=== PATIENT | female | born 1940 | race Caucasian/White ===

== ENCOUNTER 2018-07-24 09:58 | Outpatient (REF) | payer MEDICARE, SELFPAY ==
[2018-07-24 21:44] LABS: Anion Gap 7.3 mmol/L (3-11); BUN 16 mg/dL (7-18); CO2 31.7 mmol/L (21.0-32.0); CREATININE 0.82 mg/dL (0.55-1.02); Calcium 9.1 mg/dL (8.5-10.1); Chloride 100 mmol/L (98-107); Glucose 76 mg/dL (70-100); Potassium 4.3 mmol/L (3.5-5.1); Sodium 139 mmol/L (136-145)
== END 2018-07-24 10:18 ==
LOC: NCHCN 09:58
PROVIDERS: PCP Family Medicine; Visit Provider Family Medicine
DX: I10 Essential (primary) hypertension (principal)
CPT/HCPCS: 80048

== ENCOUNTER 2018-11-07 16:11 | Outpatient (REF) | payer MEDICARE, SELFPAY | END 2018-11-07 16:31 | LOC: NCHCN 16:11 | PROVIDERS: PCP Family Medicine; Visit Provider Family Medicine | DX: R82.90 Unspecified abnormal findings in urine (principal); R07.81 Pleurodynia; M54.89 Other dorsalgia | CPT/HCPCS: 87086 ==

== ENCOUNTER 2019-10-11 09:24 | Outpatient (REF) | payer MEDICARE, SELFPAY ==
--- NOTE | 2019-10-11 08:30 | SKI_PTH ---
PATIENT: Manisha Maria LOC: [facility] U#:[id number] AGE/SX: 79/F ROOM: RE10/11/[address]: Angelita Nayak : 1940 BED: DIS: 10/11/2019 SPEC #: [id number] RECD: 10/14/19 12:29 STATUS: URTH RUSS #: [id number] LISA: 10/11/19 08:[address]: Angelita Nayak DEPT: Surgical Specimen RECD BY: Chasidy Andres Tissues: 1 - SKIN BIOPSY(SHAVE/PUNCH) Procedures: SKIN LEVEL 4 Comments: [id number]
[2019-10-11 21:33] LABS: Anion Gap 7.6 mmol/L (3-11); BUN 20 mg/dL (7-18); CO2 29.4 mmol/L (21.0-32.0); Chloride 100 mmol/L (98-107); Estimated GFR 53.48 (mL/min/1.73m2); Glucose 68 mg/dL (74-106); Potassium 4.2 mmol/L (3.5-5.1); Sodium 137 mmol/L (136-145)
== END 2019-10-11 09:44 ==
LOC: NCHCN 09:24
PROVIDERS: PCP Family Medicine; Visit Provider Family Medicine
DX: I10 Essential (primary) hypertension (principal); C44.319 Basal cell carcinoma of skin of other parts of face
CPT/HCPCS: 80048; 88305

== ENCOUNTER 2020-03-24 13:29 | Outpatient (REF) | payer MEDICARE, SELFPAY ==
[2020-03-24 21:39] LABS: Calculated LDL 106 mg/dL (<100); Cholesterol 181 mg/dL (<200); HDL Cholesterol 53 mg/dL (40-60); Triglyceride 114 mg/dL (<150)
== END 2020-03-24 13:49 ==
LOC: NCHCN 13:29
PROVIDERS: PCP Family Medicine; Visit Provider Family Medicine
DX: I10 Essential (primary) hypertension (principal)
CPT/HCPCS: 80061

== ENCOUNTER 2021-05-24 12:09 | Outpatient (REF) | payer MEDICARE, SELFPAY ==
[2021-05-24 15:40] LABS: Anion Gap 8.6 mmol/L (3-11); BUN 16 mg/dL (7-18); CO2 28.4 mmol/L (21.0-32.0); CREATININE 0.9 mg/dL (0.55-1.02); Calcium 9.1 mg/dL (8.5-10.1); Chloride 104 mmol/L (98-107); Glucose 97 mg/dL (74-106); Potassium 4.3 mmol/L (3.5-5.1); Sodium 141 mmol/L (136-145); TSH (W/Ref FT4) 1.41 uIU/mL (0.36-3.74); Vitamin B12 858 pg/mL (193-986)
[2021-05-25 10:49] LABS: Syphilis Serology (RPR) Negative (Negative)
== END 2021-05-24 12:10 | disposition home or self-care (01) ==
LOC: NCHCN 12:09
PROVIDERS: PCP Family Medicine; Visit Provider Family Medicine
DX: G31.84 Mild cognitive impairment of uncertain or unknown etiology (principal); I10 Essential (primary) hypertension
CPT/HCPCS: 80048; 82607; 84443; 86592

== ENCOUNTER 2022-06-09 17:03 | Outpatient (REF) | payer MEDICARE, SELFPAY ==
[2022-06-09 21:16] LABS: Abs Immature Grans 0.02 10^3/uL (0.0-0.06); Absolute Basophil Count 0.06 10^3/uL (0.0-0.2); Absolute Eosinophil Count 0.42 10^3/uL (0.0-0.7); Absolute Lymphocyte Count 1.71 10^3/uL (1.2-3.4); Absolute Monocyte Count 0.46 10^3/uL (0.1-0.8); Absolute Neutrophil Count 4.85 10^3/uL (1.2-6.7); Basophils % 0.8; Eosinophils % 5.6; HCT 38.5 % (36.0-46.0); Immature Grans % 0.3; Lymphocytes % 22.7; MCH 30.5 pg (27.0-33.0); MCHC 33.8 % (32.0-36.0); MCV 90 fL (80-95); MPV 10.8 fL (8.0-11.0); Monocytes % 6.1; Neutrophils % 64.5; Platelet Count 281 10^3/uL (130-400); RBC 4.26 10^6/uL (3.93-5.22); RDW 14.1 % (11.7-14.6); RDW-SD 46.9 fL; WBC 7.52 10^3/uL (4.4-10.8)
[2022-06-09 21:29] LABS: ALT 31 U/L (14-59); AST 28 U/L (15-37); Albumin 3.8 g/dL (3.4-5.0); Alkaline Phosphatase 81 U/L (46-116); Anion Gap 6.5 mmol/L (3-11); BUN 28 mg/dL (7-18); Bilirubin, Total 0.5 mg/dL (0.2-1.0); CO2 30.5 mmol/L (21.0-32.0); CREATININE 0.9 mg/dL (0.55-1.02); Calcium 9.4 mg/dL (8.5-10.1); Chloride 103 mmol/L (98-107); Estimated GFR 63.83 (mL/min/1.73m2); Glucose 94 mg/dL (74-106); Magnesium 2.1 mg/dL (1.8-2.4); Potassium 4.5 mmol/L (3.5-5.1); Sodium 140 mmol/L (136-145); Total Protein 7.1 g/dL (6.4-8.2)
== END 2022-06-09 17:04 | disposition home or self-care (01) ==
LOC: NCHCN 17:03
PROVIDERS: PCP Family Medicine; Visit Provider Registered Nurse
DX: R53.83 Other fatigue (principal)
CPT/HCPCS: 80053; 83735; 85025

== ENCOUNTER 2022-10-03 14:42 | Outpatient (REF) | payer MEDICARE, OTHER, SELFPAY ==
[2022-10-03 16:28] LABS: Calculated LDL 60 mg/dL (<100); Cholesterol 137 mg/dL (<200); HDL Cholesterol 64 mg/dL (40-60); Triglyceride 68 mg/dL (<150)
== END 2022-10-03 14:43 | disposition home or self-care (01) ==
LOC: NCHCN 14:42
PROVIDERS: PCP Family Medicine; Visit Provider Family Medicine
DX: Z00.00 Encounter for general adult medical examination without abnormal findings (principal); Z86.73 Personal history of transient ischemic attack (TIA), and cerebral infarction without residual deficits
CPT/HCPCS: 80061

== ENCOUNTER 2023-04-21 10:09 | Outpatient (REF) | payer MEDICARE, OTHER, SELFPAY | END 2023-04-21 10:10 | disposition home or self-care (01) | LOC: NCHCN 10:09 | PROVIDERS: PCP Family Medicine; Visit Provider Family Medicine | DX: R39.89 Other symptoms and signs involving the genitourinary system (principal); R82.998 Other abnormal findings in urine | CPT/HCPCS: 87077; 87086; 87186 ==

== ENCOUNTER 2024-02-02 15:20 | Outpatient (REF) | payer MEDICARE, OTHER, SELFPAY ==
[2024-02-02 21:17] LABS: HCT 33.5 % (36.0-46.0); HGB 10.7 g/dL (11.2-15.7); MCH 28.6 pg (27.0-33.0); MCHC 31.9 % (32.0-36.0); MCV 90 fL (80-95); MPV 10.5 fL (8.0-11.0); Platelet Count 266 10^3/uL (130-400); RBC 3.74 10^6/uL (3.93-5.22); RDW-SD 45.7 fL; WBC 5.21 10^3/uL (4.4-10.8)
[2024-02-02 21:33] LABS: Anion Gap 7.5 mmol/L (3-11); BUN 19 mg/dL (7-18); CO2 28.5 mmol/L (21.0-32.0); CREATININE 0.9 mg/dL (0.55-1.02); Calcium 9.2 mg/dL (8.5-10.1); Chloride 105 mmol/L (98-107); Estimated GFR 63.43 (mL/min/1.73m2); Glucose 86 mg/dL (74-106); Potassium 4.5 mmol/L (3.5-5.1); Sodium 141 mmol/L (136-145)
[2024-02-05 16:05] LABS: Lamotrigine 5.3 mcg/mL (3.0-15.0)
== END 2024-02-02 15:21 | disposition home or self-care (01) ==
LOC: NCHCN 15:20
PROVIDERS: PCP Family Medicine; Visit Provider Family Medicine
DX: G40.209 Localization-related (focal) (partial) symptomatic epilepsy and epileptic syndromes with complex partial seizures, not intractable, without status epilepticus (principal)
CPT/HCPCS: 80048; 80175; 85027

== ENCOUNTER 2024-02-16 11:47 | Outpatient (REF) | payer MEDICARE, OTHER, SELFPAY ==
[2024-02-16 17:03] LABS: Ferritin 20 ng/mL (8-252)
[2024-02-16 17:12] LABS: Iron 31 ug/dL (50-170); Total Iron Binding Capacity 434 ug/dL (250-450); Transferrin Sat 7 % (15-50)
[2024-02-19 13:24] LABS: Lamotrigine 5.9 mcg/mL (3.0-15.0)
== END 2024-02-16 11:48 | disposition home or self-care (01) ==
LOC: NCHCN 11:47
PROVIDERS: PCP Family Medicine; Visit Provider Family Medicine
DX: D64.9 Anemia, unspecified (principal)
CPT/HCPCS: 80175; 82728; 83540; 83550

== ENCOUNTER 2024-07-02 16:25 | Outpatient (REF) | payer MEDICARE, OTHER, SELFPAY ==
[2024-07-02 21:22] LABS: HCT 36.4 % (36.0-46.0); HGB 11.8 g/dL (11.2-15.7); MCH 29.7 pg (27.0-33.0); MCHC 32.4 % (32.0-36.0); MCV 92 fL (80-95); MPV 10.7 fL (8.0-11.0); Platelet Count 243 10^3/uL (130-400); RBC 3.97 10^6/uL (3.93-5.22); RDW 14.6 % (11.7-14.6); RDW-SD 49.5 fL; WBC 6.38 10^3/uL (4.4-10.8)
[2024-07-02 22:40] LABS: Iron 37 ug/dL (50-170); Total Iron Binding Capacity 342 ug/dL (250-450); Transferrin Sat 11 % (15-50)
== END 2024-07-02 16:26 | disposition home or self-care (01) ==
LOC: NCHCN 16:25
PROVIDERS: PCP Family Medicine; Visit Provider Family Medicine
DX: D50.9 Iron deficiency anemia, unspecified (principal)
CPT/HCPCS: 85027; 83540; 83550